=== PATIENT | female | born 1970 | race Caucasian/White ===

== ENCOUNTER 2019-05-25 23:24 | Emergency (ER) | payer OTHER ==
[~2019-05-25] VITALS: Ht 160 cm; Wt 93.9 kg
[2019-05-25 23:29] VITALS: Ht 160 cm; Wt 93.9 kg
[2019-05-26 01:12] VITALS: BP 97/43
== END 2019-05-26 01:12 | disposition home or self-care (01) ==
LOC: ED 23:24
DX: R07.89 Other chest pain (principal)

== ENCOUNTER 2020-04-19 12:56 | Emergency (ER) | payer OTHER ==
[~2020-04-19] VITALS: Ht 160 cm; Wt 101.6 kg
[2020-04-19 13:09] VITALS: Ht 160 cm; Wt 101.6 kg
[2020-04-19 14:48] LABS: BASOPHIL % 0.6 % (0-2); PLATELET COUNT 225 x10^3mcL (130-400); RED CELL DISTRIBUTION WIDTH 13.3 % (11.5-14.5)
[2020-04-19 15:05] LABS: CALCIUM 9.5 mg/dL (8.5-10.1); CARBON DIOXIDE 25.6 mmol/L (21-32); CHLORIDE SERUM 106 mmol/L (98-107); CREATININE SERUM 0.8 mg/dL (0.6-1.0); GFR1 > 60 mL/min; GLUCOSE SERUM 89 mg/dL (74-106); POTASSIUM SERUM 3.5 mmol/L (3.5-5.1); SODIUM SERUM 139 mmol/L (136-145)
[2020-04-19 15:10] LABS: ALBUMIN 3.9 g/dL (3.4-5.0); ALKALINE PHOSPHATASE 72 U/L (46-116); ALT/SGPT 28 U/L (14-59); AST/SGOT 22 U/L (15-37); BILIRUBIN TOTAL 0.3 mg/dL (0.20-1.00); LIPASE 164 IU/L (73-393); TOTAL PROTEIN, SERUM 8.2 g/dL (6.4-8.2)
[2020-04-19 15:31] LABS: microscopic required? NO
[2020-04-19 15:38] LABS: urine erythrocyte NEGATIVE (NEGATIVE)
[2020-04-19 17:59] VITALS: BP 114/65
== END 2020-04-19 15:15 | disposition home or self-care (01) ==
LOC: ED 12:56
PROVIDERS: Emergency Medicine
DX: R11.13 Vomiting of fecal matter (principal); R10.12 Left upper quadrant pain; E78.00 Pure hypercholesterolemia, unspecified
CPT/HCPCS: J1885; J2405; J7030; Q9967